=== PATIENT | male | born 1995 | race African-American/Black ===

== ENCOUNTER 2016-04-22 23:28 | Emergency (ER) | payer OTHER ==
[~2016-04-22 23:28] MED LIST: ALBUTEROL17 GM INH
== END 2016-04-23 00:08 | disposition home or self-care (01) ==
LOC: SED 23:28
DX: G44.209 Tension-type headache, unspecified, not intractable (principal); F41.9 Anxiety disorder, unspecified
CPT/HCPCS: 99282; J1885

== ENCOUNTER 2016-06-20 19:10 | Emergency (ER) | payer OTHER | END 2016-06-20 21:41 | disposition left against medical advice (07) | LOC: SED 19:10 | DX: Z53.21 Procedure and treatment not carried out due to patient leaving prior to being seen by health care provider (principal) ==

== ENCOUNTER 2016-06-24 17:12 | Emergency (ER) | payer OTHER ==
[2016-06-24] MEDS ORDERED: NO MEDICATIONS (17:19)
== END 2016-06-24 18:10 | disposition home or self-care (01) ==
LOC: SED 17:12
DX: R51 Headache (principal); J45.909 Unspecified asthma, uncomplicated
CPT/HCPCS: 99282; J1885; J2405

== ENCOUNTER 2016-09-08 14:24 | Emergency (ER) | payer SELFPAY ==
[~2016-09-08] VITALS: Ht 180.3 cm; Wt 90.3 kg
[~2016-09-08 14:24] MED LIST changes: +NO MEDICATIONS
== END 2016-09-08 15:55 | disposition home or self-care (01) ==
LOC: SED 14:24
DX: F41.9 Anxiety disorder, unspecified (principal)
CPT/HCPCS: 99283

== ENCOUNTER 2016-10-11 19:37 | Emergency (ER) | payer SELFPAY ==
[~2016-10-11] VITALS: Ht 180.3 cm; Wt 90.3 kg
== END 2016-10-11 22:40 | disposition home or self-care (01) ==
LOC: SED 19:37 → CED 20:50 → SED 20:50
DX: A08.4 Viral intestinal infection, unspecified (principal); F41.9 Anxiety disorder, unspecified; F32.9 Major depressive disorder, single episode, unspecified
CPT/HCPCS: 99283